=== PATIENT | male | born 1950 | race Caucasian/White ===

== ENCOUNTER 2019-07-13 05:23 | Day surgery (SDC) ==
--- NOTE | 2019-06-22 08:58 | EKG Report ---
Test Performed on : 06/22/2019 08:54:51 AM Test Reason : pat Blood Pressure : / mmHG Vent. Rate : 078 BPM Atrial Rate : 078 BPM P-R Int : 176 ms QRS Dur : 102 ms QT Int : 360 ms P-R-T Axes : 077 088 051 degrees QTc Int : 410 ms Normal sinus rhythm. Incomplete right bundle branch block Borderline ECG No previous ECGs available Confirmed by Mike Farnsworth MD ([id number]) on 06/26/2019 9:30:05 PM
[2019-06-22 09:53] LABS: HEMATOCRIT 31.1 % (42.0-52.0); HEMOGLOBIN 10.2 g/dL (14.0-18.0); MCH 31.3 PG (27-31); MCHC 32.8 g/dL (33-37); MCV 95.4 FL (81-99); MPV 10.2 FL (7.4-10.4); RBC 3.26 XMIL (4.7-6.1); RDW 12.2 % (11.5-14.5); WBC 5.91 X1000 (4.8-10.8)
[2019-06-22 10:37] LABS: CALCIUM 8.8 mg/dL (8.8-10.2); CREATININE 3.6 mg/dL (0.7-1.2); POTASSIUM 5.3 mmol/L (3.5-5.1)
--- NOTE | 2019-07-12 18:25 | HISTORY AND PHYSICAL ---
CHIEF COMPLAINT: Elevated PSA and elevated risk for aggressive prostate cancer 4K score. HISTORY OF PRESENT ILLNESS: This 69-year-old male was noted to have an elevated PSA on routine physical. It was 5.8. This had never occurred before. He had no voiding problems. He has had no previous urologic surgery except prostate biopsies. He has no history of kidney stones. He has no family history of prostate cancer. His 4K score had elevated risk for aggressive prostate cancer. He underwent transrectal prostate ultrasound and biopsies in March 2018. Pathology was benign. His PSA in September 2018 was 8.8, and his 4K score was again elevated. He underwent prostate ultrasound and biopsies in October 2018 with benign pathology. His PSA in early May 2019 was 9.78. A repeat was 10.57 with his 4K score having an elevated risk to 79%. He has near end-stage renal disease and had an arteriovenous shunt placed in the left upper extremity to start dialysis in the next month or so. The patient presents for transrectal prostate ultrasound and biopsy under anesthesia, and then transurethral resection of the prostate to sample the anterior prostatic urethra. PAST MEDICAL HISTORY: As noted in the HPI, elevated cholesterol, hypertension, CURRENT MEDICATIONS: 1. Lotrel 10-20 mg 1 daily. 2. Vascepa 1 g oral capsule, 2 capsules via oral route 2 times a day. 3. Zetia 10 mg a day. PAST SURGICAL HISTORY: Howes teeth extraction, and several transrectal prostate ultrasounds and biopsies. SOCIAL HISTORY: Social use of alcohol. No tobacco use. ALLERGIES: No known drug allergies. REVIEW OF SYSTEMS: Usually in good health. He denies any problems with heart disease, diabetes, strokes, seizures, pulmonary, or bowel problems. PHYSICAL EXAMINATION: GENERAL: A normally developed, well nourished, mildly obese, age apparent, white male, oriented in all ways and cooperative. HEENT: Normal for age. LUNGS: Clear. CARDIOVASCULAR: Regular rate and rhythm. ABDOMEN: Obese. Large pannus. No hepatosplenomegaly or masses. Normal bowel sounds. : Uncircumcised male. Foreskin retracts. No lesions or discharges. Scrotal exam reveals palpably normal testes bilaterally. RECTAL: Normal sphincter tone. Prostate about 40 g, smooth, and symmetric. EXTREMITIES: No clubbing, cyanosis, or edema. NEUROLOGIC: No focal deficits. IMPRESSION: Patient with elevated prostate specific antigen and elevated risk for aggressive prostate cancer. PLAN: Transrectal prostate ultrasound and biopsies, and then transurethral resection of the prostate. The planned procedure, benefits versus risks, and possible complications, including, but not limited to, bleeding, infection, not finding cancer, finding cancer with need for further treatment, retrograde ejaculation, bladder neck contracture, and need for further surgery were discussed. He seems to understand and desires to proceed. cc: Gerardo Harris MD
[2019-07-13] MEDS ORDERED: PEPCID ONE (05:41)
[2019-07-13] MEDS ORDERED: KEFZOL 1 GM/D5W 2 GM/100 ML IVPB ONE (05:41)
[2019-07-13] MEDS ORDERED: 1/2 NS 500 ML ONE (05:41)
[2019-07-13] MEDS ORDERED: GENTAMICIN 80 MG/NS 80 MG/50 ML IVPB ONE (05:42)
[2019-07-13] MEDS ORDERED: KEFZOL 1 GM/D5W 1 GM/50 ML IVPB ONE (05:46)
[2019-07-13] MEDS ORDERED: XYLOCAINE-MPF 2% ONE (06:54)
[2019-07-13] MEDS ORDERED: DIPRIVAN 1% ONE (06:55)
[2019-07-13] MEDS ORDERED: FENTANYL ONE (07:28)
[2019-07-13] MEDS ORDERED: DECADRON ONE (07:42)
[2019-07-13] MEDS ORDERED: ZOFRAN ONE (07:42)
[2019-07-13] MEDS ORDERED: B & O 15A SUPP ONE (08:16)
[2019-07-13] MEDS: DILAUDID ONE ×2 (08:40→08:55)
[2019-07-13] MEDS ORDERED: DITROPAN ONE (08:44)
[2019-07-13] MEDS ORDERED: NS 1,000 ML ONE (09:14)
--- NOTE | 2019-07-13 09:29 | OPERATIVE NOTE ---
PROCEDURE DATE: 07/13/2019 PREOPERATIVE DIAGNOSIS: Elevated PSA and elevated 4K-score with multiple benign prostate biopsies. POSTOPERATIVE DIAGNOSIS: Elevated PSA and elevated 4K-score with multiple benign prostate biopsies. PROCEDURE PERFORMED: 1. Transrectal prostate ultrasound and biopsy. 2. Transurethral resection of the prostate. SURGEON: Mike Kendrick ANESTHESIA: General via laryngeal mask. FINDINGS: Prostate volume by ultrasound was 22.3 cubic cm. There were no hypoechoic areas noted. There was a hyperechoic area consistent with stone in the right base. Capsular integrity was normal. There was no asymmetry. Cystoscopic exam: Urethra-greater than 25 [place], without stricture. Prostate - mild hypertrophy of the lateral lobes, elevated bladder neck, length approximately 3.5 cm. Bladder - normal ureteral orifices bilaterally. Grade 1 trabeculations. No diverticula or cellules. No bladder stones. Rectal exam reveals a prostate of about 30 grams, smooth, and symmetric. INDICATION FOR PROCEDURE: This 68-year-old male has a long history of increasing PSA. He has had multiple transrectal prostate ultrasound and biopsies in the office. His 4K score also has elevated risk for aggressive prostate cancer. He presents for transrectal prostate biopsy under anesthesia and transurethral resection of the prostate to sample anterior prostatic urethral tissue. DESCRIPTION OF PROCEDURE: After informed consent was obtained from the patient and him receiving IV antibiotics, he was taken to the main OR, placed in the supine position. General anesthesia via laryngeal mask was achieved. He was then placed in the lateral decubitus position with the left side up. The [employer] Alpha 10 ProSound ultrasound machine with the 7.5 megahertz rectal probe was placed and the prostate imaged. The [employer] needle gun with an 18-gauge Alirio-Cut needle was used to biopsy the prostate. The biopsies were taken starting at the left base at the extreme lateral and mid position. The left mid prostate was biopsied at the extreme lateral and mid position. The left apex of the prostate was biopsied at the extreme lateral and mid position. The right side was accomplished similarly. He was then placed in the supine position and then the low lithotomy position and prepped and draped in the usual sterile fashion for transurethral resection of the prostate. A 21-[place] sheath cystoscope was passed through the patient's urethra, prostate, and bladder with findings noted above. The cystoscope was removed and the 25- [place] continuous flow resectoscope sheath was placed. The thick gyrus loop electrode was placed. Both ureteral orifices were visualized. The verumontanum was visualized. The resection was started at 6 o'clock position, going from the level of bladder neck, level of the verumontanum, proceeding in a clockwise direction to the 10 o'clock position. Resection was then started back at the 6 o'clock position, going from the level of bladder neck, level of the verumontanum, proceeding in a counterclockwise direction to the 2 o'clock position. Tissue between the 2 o'clock and 10 o'clock positions from the level of bladder neck, level of the verumontanum was removed. Hemostasis was achieved with electrocautery. The chips were removed from the bladder with the OneydaSpreedly evacuators. At completion the bladder was left distended. The resectoscope was removed. A 22-[place], 3 way Meade catheter was passed through the patient's urethra, prostate, and bladder without difficulty. 30 mL sterile water placed in Meade's balloon. The efflux was very light pink. Continuous bladder irrigation was started and it completely cleared. A 15-A B O suppository was placed. He tolerated the procedure well. Estimated blood loss 50 mL. He was taken to recovery room in good condition. cc: Gerardo Harris MD
[2019-07-13] MEDS ORDERED: NORCO-7.5 PO PRN (10:30)
[2019-07-13] MEDS ORDERED: NORCO-5 PO PRN (10:30)
[2019-07-13] MEDS ORDERED: NORCO-10 PO PRN (10:30)
[2019-07-13] MEDS ORDERED: DITROPAN PO PRN (10:30)
[2019-07-13] MEDS ORDERED: SODIUM CHLORIDE 0.9% INJ PRN (10:30)
[2019-07-13] MEDS ORDERED: LABETALOL IV PRN (10:30)
[2019-07-13] MEDS ORDERED: PHENERGAN IV PRN (10:30)
[2019-07-13] MEDS ORDERED: B & O 15A SUPP PR PRN (10:30)
[2019-07-13] MEDS: KEFZOL 1 GM/D5W 1 GM/50 ML IVPB IV SCH ×2 (17:41→21:01)
[2019-07-13] MEDS: NS 1,000 ML IV SCH (18:24)
[2019-07-13] MEDS: PEPCID PO SCH (21:00)
[2019-07-13] MEDS: COLACE PO SCH (21:00)
[2019-07-14] MEDS: KEFZOL 1 GM/D5W 1 GM/50 ML IVPB IV SCH (05:02)
[2019-07-14] MEDS: NS 1,000 ML IV SCH (06:17)
[2019-07-14 06:44] LABS: HEMATOCRIT 27.6 % (42.0-52.0); HEMOGLOBIN 8.9 g/dL (14.0-18.0); MCH 32.1 PG (27-31); MCHC 32.2 g/dL (33-37); MCV 99.6 FL (81-99); MPV 9.6 FL (7.4-10.4); RBC 2.77 XMIL (4.7-6.1); RDW 12.1 % (11.5-14.5); WBC 9.49 X1000 (4.8-10.8)
[2019-07-14 07:06] LABS: CALCIUM 7.6 mg/dL (8.8-10.2); POTASSIUM 5.2 mmol/L (3.5-5.1)
[2019-07-14] MEDS: COLACE PO SCH (10:06)
[2019-07-14] MEDS: PEPCID PO SCH (10:06)
[2019-07-14 11:36] VITALS: BP 122/59
== END 2019-07-14 13:33 | disposition home or self-care (01) ==
LOC: 4N 05:23 → OPS 05:23
PROVIDERS: ATTEND Urology
PROC: UR.TURP (2019-07-13 06:57)